=== PATIENT | male | born 1955 | race Caucasian/White ===

== ENCOUNTER → 2024-11-14 | Outpatient (CLI) | payer OTHER, MEDICARE, BC ==
[~2024-11-14] MED LIST: ACET65TA OR; COUM1TAB18 OR; COZA100T PO; FLON0.05; LEVO150T PO; LODINE PO; OMEP20TA7 PO; PERC5TAB8 OR; PERC7.5T8 OR; SIMV40TA2 PO; TRIC145T19 PO; ULTR300T PO; VICO5TAB PO
== END ==
LOC: M SOG 07:29
PROVIDERS: ATTEND Physician Assistant
DX: M25.551 Pain in right hip (principal); M25.552 Pain in left hip

== ENCOUNTER → 2025-01-05 | Outpatient (CLI) | payer MEDICARE, BC | LOC: M PLARAD 09:53 | PROVIDERS: ATTEND Anesthesiology Pain Medicine | DX: M96.1 Postlaminectomy syndrome, not elsewhere classified (principal); M54.16 Radiculopathy, lumbar region; M48.061 Spinal stenosis, lumbar region without neurogenic claudication ==